=== PATIENT | female | born 1940 | race Hispanic/Latino ===

== ENCOUNTER 2019-07-29 10:17 | Day surgery (SDC) | payer OTHER ==
[~2019-07-29] VITALS: Ht 154.9 cm; Wt 5.4 kg
[2019-07-29 11:47] VITALS: BP 114/41
[2019-07-29] MEDS ORDERED: SODIUM CHLORIDE 0.9% 1000ML 1,000 ML IV ONE (11:58)
[2019-07-29] MEDS ORDERED: PROPOFOL 10 MG/ML 20ML VIAL IV ONE ×2 (12:25)
[2019-07-29 12:50] VITALS: BP 117/52
[2019-07-29 12:55] VITALS: BP 123/61
[2019-07-29 13:00] VITALS: BP 124/60
[2019-07-29 13:06] VITALS: BP 125/59
[2019-07-29 13:10] VITALS: BP 109/54
== END 2019-07-29 13:49 | disposition home or self-care (01) ==
LOC: DAH 10:17 → ENDO 10:17
PROVIDERS: ATTEND Student in an Organized Health Care Education/Training Program
DX: K91.2 Postsurgical malabsorption, not elsewhere classified (principal); K44.9 Diaphragmatic hernia without obstruction or gangrene; K21.9 Gastro-esophageal reflux disease without esophagitis; I10 Essential (primary) hypertension; E11.9 Type 2 diabetes mellitus without complications; Z90.49 Acquired absence of other specified parts of digestive tract; Z90.710 Acquired absence of both cervix and uterus; Z98.890 Other specified postprocedural states; Z94.5 Skin transplant status; Z82.49 Family history of ischemic heart disease and other diseases of the circulatory system; Z83.3 Family history of diabetes mellitus; Z80.9 Family history of malignant neoplasm, unspecified; Z79.01 Long term (current) use of anticoagulants; Z79.899 Other long term (current) drug therapy; Z79.84 Long term (current) use of oral hypoglycemic drugs; Z99.89 Dependence on other enabling machines and devices; Z93.2 Ileostomy status
CPT/HCPCS: 43235; 45378; 82948 ×2; A4215; A4221; A4222; A4223; A4606; A4620; A4663; J2704; J7030; 45330